=== PATIENT | male | born 1985 | race Two or more races ===

== ENCOUNTER 2017-01-22 08:35 | Inpatient (IN) | payer OTHER ==
[2017-01-22 10:52] VITALS: BMI 22.2
[2017-01-22] MEDS ORDERED: NICOTINE POLACRILEX 2 MG GUM BUC PRN (11:18)
[2017-01-22] MEDS ORDERED: MAGNESIUM CITRATE 300 ML BOTTLE PO PRN (11:18)
[2017-01-22] MEDS ORDERED: MENTHOL/PHENOL 1 EACH UD MM PRN (11:18)
[2017-01-22] MEDS ORDERED: IBUPROFEN 400 MG TABLET (FP) PO PRN (11:18)
[2017-01-22] MEDS ORDERED: LOPERAMIDE HCL 2 MG CAPSULE PO PRN (11:18)
[2017-01-22] MEDS ORDERED: hydrOXYzine PAMOATE 50 MG CAPSULE (FP) PO PRN (11:18)
[2017-01-22] MEDS ORDERED: P-EPHED 60MG/TRIPROLIDI 2.5MG TABLET PO PRN (11:18)
[2017-01-22] MEDS ORDERED: guaiFENesin/D-METHORPHAN HB 10 ML UNIT-DOSE CUPS PO PRN (11:18)
[2017-01-22] MEDS ORDERED: MAG HYDROX/AL HYDROX/SIMETH 30 ML UNIT-DOSE CUP PO PRN (11:18)
[2017-01-22] MEDS ORDERED: diphenhydrAMINE HCL 50 MG CAPSULE PO PRN (11:18)
[2017-01-22] MEDS ORDERED: MAGNESIUM HYDROX 2400MG/30ML ORAL SUSPENSION 30 ML CUP PO PRN (11:18)
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
[2017-01-22] MEDS ORDERED: COLLOIDAL OATMEAL 1 BAR EACH TP PRN (11:28)
[2017-01-22] MEDS ORDERED: AMMONIUM LACTATE 12% LOTION 225 GM BOTTLE TP PRN (11:28)
[2017-01-22] MEDS ORDERED: TACROLIMUS 30 GM TP SCH (11:30)
[2017-01-22] MEDS: NAPROXEN 500 MG TABLET (FP) PO SCH ×2 (14:55→21:36)
[2017-01-22] MEDS: LEVOTHYROXINE NA 25 MCG TABLET (FP) PO SCH (14:55)
[2017-01-22] MEDS: SULFAMETHOXAZOLE/TRIMETHOPRIM 800MG/160MG D.S. TABLET PO SCH (14:55)
[2017-01-22] MEDS: PANTOPRAZOLE 40 MG TABLET (FP) PO SCH (14:55)
[2017-01-22] MEDS: FERROUS SO4 325 MG TABLET (FP) PO SCH ×2 (14:55→17:38)
[2017-01-22] MEDS: GABAPENTIN 100 MG CAPSULE (FP) PO SCH ×2 (14:55→21:36)
[2017-01-22] MEDS: LIDOCAINE 5% TOPICAL PATCH TP SCH (14:56)
[2017-01-22] MEDS: NICOTINE 14 MG/24 HOURS TOPICAL PATCH TD SCH (14:56)
[2017-01-22] MEDS: CLOTRIMAZOLE 10 MG TROCHE (FP) PO SCH ×3 (14:57→22:06)
[2017-01-22] MEDS: CYCLOBENZAPRINE HCL 5 MG TABLET PO SCH ×3 (15:30→22:25)
[2017-01-22] MEDS: BETAMETHASONE DIP 0.05% TP LOTION 60 ML BOTTLE TP SCH (15:30)
[2017-01-22] MEDS ORDERED: TUBERCULIN PPD 5 TU/0.1ML VIAL ID ONE (15:56)
[2017-01-22 16:57] LABS: URINE APPEARANCE CLEAR; URINE BILIRUBIN NEGATIVE (NEGATIVE); URINE BLOOD NEGATIVE (NEGATIVE); URINE COLOR YELLOW; URINE GLUCOSE (UA) NEGATIVE (NEGATIVE); URINE KETONE NEGATIVE (NEGATIVE); URINE LEUK ESTERASE NEGATIVE (NEGATIVE); URINE NITRITE NEGATIVE (NEGATIVE); URINE PROTEIN NEGATIVE (NEGATIVE); URINE UROBILINOGEN NEGATIVE mg/dL (0.2-1.0)
[2017-01-22 17:02] LABS: MCHC 35.3 g/dl (32.0-35.9); MEAN CELL VOLUME 90.7 fl (80-96); PLATELET COUNT 331 K/MM3 (134-434); RDW 14.4 % (11.9-15.9); WHITE BLOOD COUNT 6.5 K/mm3 (4.0-10.0)
[2017-01-22 17:12] LABS: ALBUMIN 3.4 g/dl (3.4-5.0); ALK PHOS 34 U/L (45-117); ANION GAP 10 (8-16); BILIRUBIN,TOTAL 0.4 mg/dL (0.2-1.0); CALCIUM 8.8 mg/dL (8.5-10.1); CO2 27 mmol/L (21-32); GLUCOSE,RANDOM 84 mg/dL (74-106); SGOT/AST 23 U/L (15-37); SGPT/ALT 30 U/L (12-78); TOT PROT 8.6 g/dl (6.4-8.2)
[2017-01-22] MEDS: ACETAMINOPHEN 325 MG TABLET (FP) PO PRN (18:24)
[2017-01-22] MEDS ORDERED: DOCUSATE SODIUM 100 MG CAPSULE (FP) PO SCH (22:00)
[2017-01-22] MEDS ORDERED: MIRTAZAPINE 15 MG TABLET (FP) PO SCH (22:00)
[2017-01-22] MEDS ORDERED: LIDOCAINE PATCH REMOVAL MC SCH (22:00)
[2017-01-22] MEDS ORDERED: THIAMINE HCL 100 MG TABLET (FP) PO SCH (22:00)
[2017-01-23] MEDS: LEVOTHYROXINE NA 25 MCG TABLET (FP) PO SCH (06:35)
[2017-01-23] MEDS: GABAPENTIN 100 MG CAPSULE (FP) PO SCH (06:35)
[2017-01-23] MEDS: CYCLOBENZAPRINE HCL 5 MG TABLET PO SCH ×2 (06:35→14:46)
[2017-01-23] MEDS: CLOTRIMAZOLE 10 MG TROCHE (FP) PO SCH ×3 (06:36→14:47)
[2017-01-23 07:19] VITALS: BP 121/74; PULSE 91; TEMP 98.5
[2017-01-23] MEDS: FERROUS SO4 325 MG TABLET (FP) PO SCH ×2 (07:24→12:31)
[2017-01-23] MEDS: ACETAMINOPHEN 325 MG TABLET (FP) PO PRN (09:31)
[2017-01-23] MEDS ORDERED: PRENATAL VITAMINS W/ FOLIC ACID TABLET (FP) PO SCH (10:00)
[2017-01-23] MEDS ORDERED: AZITHROMYCIN 600 MG TABLET PO SCH (10:00)
[2017-01-23] MEDS ORDERED: BENZTROPINE MESYLATE 1 MG TABLET (FP) PO SCH ×2 (10:00→22:00)
[2017-01-23] MEDS ORDERED: SERTRALINE HCL 50 MG TABLET (FP) PO SCH (10:00)
[2017-01-23] MEDS ORDERED: FLUTICASONE PROP 0.05% 16 GM NASAL SPRAY NS SCH (11:00)
[2017-01-23] MEDS ORDERED: HYDROCORTISONE 2.5% TOPICAL CREAM 30 GM TUBE PR SCH (11:00)
[2017-01-23] MEDS ORDERED: ONDANSETRON *ODT* 4 MG TABLET SL ONE (11:03)
[2017-01-23] MEDS: SULFAMETHOXAZOLE/TRIMETHOPRIM 800MG/160MG D.S. TABLET PO SCH (11:22)
[2017-01-23] MEDS: PANTOPRAZOLE 40 MG TABLET (FP) PO SCH (11:23)
[2017-01-23] MEDS: BETAMETHASONE DIP 0.05% TP LOTION 60 ML BOTTLE TP SCH (11:24)
[2017-01-23] MEDS: NICOTINE 14 MG/24 HOURS TOPICAL PATCH TD SCH (11:25)
[2017-01-23] MEDS: LIDOCAINE 5% TOPICAL PATCH TP SCH (11:26)
[2017-01-23] MEDS: LORATADINE 10 MG TABLET PO SCH ×2 (11:29→12:36)
[2017-01-23] MEDS: NAPROXEN 500 MG TABLET (FP) PO SCH (11:31)
[2017-01-23] MEDS ORDERED: GABAPENTIN 300 MG CAPSULE (FP) PO SCH (14:00)
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
--- NOTE | 2017-01-23 15:57 | PN ---
S Progress Note Note: patient reported to the staff that he is leaving [facility], " I feel uncomfortable here"
--- NOTE | 2017-01-23 22:42 | EKG ---
Test Reason : Blood Pressure : / mmHG Vent. Rate : 067 BPM Atrial Rate : 094 BPM P-R Int : 000 ms QRS Dur : 088 ms QT Int : 382 ms P-R-T Axes : 042 039 034 degrees QTc Int : 403 ms SINUS RHYTHM WITH 2ND DEGREE A-V BLOCK (MOBITZ I) NONSPECIFIC T WAVE ABNORMALITY INPRECORDIAL LEADS ABNORMAL ECG WHEN COMPARED WITH ECG OF 02-APR-2014 09:47, SINUS RHYTHM IS NOW WITH 2ND DEGREE A-V BLOCK (MOBITZ I) T WAVE INVERSION NOW EVIDENT IN ANTERIOR LEADS FOLLOWUP TRACING IS RECOMMENDED Confirmed by LIZETTE MARTINEZ MD ([id number] on 01/23/2017 10:42:04 PM Referred By: Traci EDMOND Confirmed By:LIZETTE MARTINEZ MD
== END 2017-01-23 15:55 | disposition left against medical advice (07) | DRG 894 ==
LOC: YASAS 08:35 → Y5N 12:25
PROVIDERS: ADMIT Psychiatry & Neurology Psychiatry; ATTEND Psychiatry & Neurology Psychiatry
PROC: HZ42ZZZ Group Counseling for Substance Abuse Treatment, Cognitive-Behavioral (ICD-10-PCS; principal; 2017-01-20)
DX: F19.20 Other psychoactive substance dependence, uncomplicated (principal); F10.20 Alcohol dependence, uncomplicated; F12.20 Cannabis dependence, uncomplicated; F17.210 Nicotine dependence, cigarettes, uncomplicated; F31.9 Bipolar disorder, unspecified; F25.9 Schizoaffective disorder, unspecified; E03.9 Hypothyroidism, unspecified; D64.9 Anemia, unspecified; Z21 Asymptomatic human immunodeficiency virus [HIV] infection status; Z87.438 Personal history of other diseases of male genital organs; Z91.5 Personal history of self-harm
CPT/HCPCS: 36415; 80053; 81003; 85027; 86593; 86780; 93005; 93010